=== PATIENT | male | born 1990 | race Caucasian/White ===

== ENCOUNTER 2021-09-23 09:17 | Outpatient (RCR) | payer OTHER ==
[~2021-09-23 09:17] MED LIST: ISOT40CA8 PO
== END 2021-10-20 | disposition home or self-care (01) ==
LOC: CARD 09:17
PROVIDERS: ATTEND Nurse Practitioner Family
DX: I95.1 Orthostatic hypotension (principal); R00.2 Palpitations; I49.8 Other specified cardiac arrhythmias
CPT/HCPCS: 93270

== ENCOUNTER 2021-11-09 09:38 | Emergency (ER) | payer OTHER ==
[~2021-11-09] VITALS: Ht 175 cm; Wt 76.0 kg
--- NOTE | 2021-11-09 10:37 | ED Chest Pain ---
General Chief Complaint: Chest Pain Stated Complaint: CHEST TIGHTNESS Nursing Triage Note: PT REPORTS TO ED POV FOR LEFT PECTORAL CHEST PAIN. PER PT PAIN STARTED YESTERDAY AND IS INTERMITTENT. DENIES CARDIAC HX BUT DOES HAVE AN ECHO SCHEDULED 11/12/21. PT RAN OUT OF HIS METOPROLOL 11/06/21, UNSURE IF THIS IS PART OF THE ISSUE. PT AMB. TO ROOM 03 WITHOUT DIFFICULTY. Source: patient Exam Limitations: no limitations History of Present Illness Date Seen by Provider: Nov 09, 2021 Time Seen by Provider: 10:30 Initial Comments Wilfrid is a 31-year-old otherwise healthy individual with a chief complaint of left sided chest discomfort/pressure "tightness". He states that he had COVID a year and a half ago and feels like he has multiple symptoms related to that but it persisted over the last 18 months. He states in the last 24 to 48 hours he has had this discomfort develop it happens both at rest, while driving and moving around. No associated symptoms of sweating, shortness of breath or nausea. His primary care physician is working up his "long-haul" COVID symptoms. He has a scheduled appointment for chest x-ray and echocardiogram on Tuesday of this week. Patient denies any recent illnesses such as fevers, chills, cough or congestion. He is COVID vaccinated after his COVID diagnosis. He has not had a booster. No personal or family history of blood clot or cardiovascular disease. Hypothyroidism runs in the family and his thyroid levels have been checked within the last month or 2. He does endorse a significant amount of anxiety related to his symptoms Currently no pain. All other review of systems reviewed and negative except as stated. Timing/Duration: 1-2 days Severity/Quality: pressure, tightness Location: central (left sided) Radiation: no radiation Activities at Onset: none Prior CP/Workup: no prior chest pain, no prior cardiac workup ASA po SHOWER ROOM ATTENDANT: No NTG SL SHOWER ROOM ATTENDANT: No Associated Symptoms: fatigue Allergies and Home Medications Allergies Coded Allergies: No Known Drug Allergies (Unverified , 11/09/11) Patient Home Medication List Home Medication List Reviewed: Yes Isotretinoin (Accutane) 40 Mg Capsule, 40 MG PO, (Reported) Entered as Reported by: SHIKHA BORREGO on 11/09/11 3163 Review of Systems Review of Systems Constitutional: see HPI EENTM: No Symptoms Reported Respiratory: No Symptoms Reported Cardiovascular: Chest Pain Gastrointestinal: No Symptoms Reported Genitourinary: No Symptoms Reported Musculoskeletal: no symptoms reported Skin: no symptoms reported Psychiatric/Neurological: Anxiety All Other Systems Reviewed Negative Unless Noted: Yes Past Moquotf-Cjmfti-Xsvxnm Hx Patient Social History Tobacco Use?: No Use of E-Cig and/or Vaping dev: No Substance use?: No Alcohol Use?: Yes Alcohol type: Beer Alcohol Frequency: Once in a while Pt feels they are or have been: No Immunizations Up To Date First/Initial COVID19 Vaccinat: 08/2020 Second COVID19 Vaccination Georgi: 08/2020 COVID19 Vaccine Milk Route Deliverer: [place] Past Medical History Surgery/Hospitalization HX: PMH;DENIES. SURGERY;DENIES. Physical Exam Vital Signs Vital Signs - First Documented 11/09/21 09:42 Temp 36.1 Pulse 60 Resp 16 B/P (MAP) 120/68 (85) Pulse Ox 99 O2 Delivery Room Air Capillary Refill : Less Than 3 Seconds Height, Weight, BMI Height: '" Weight: lbs. oz. kg; 24.00 BMI Method:Stated General Appearance: No Apparent Distress, WD/WN HEENT: PERRL/EOMI Neck: Normal Inspection Respiratory: Lungs Clear, Normal Breath Sounds, No Accessory Muscle Use, No Respiratory Distress Cardiovascular: Regular Rate, Rhythm, No Murmur, Normal Peripheral Pulses Gastrointestinal: Normal Bowel Sounds, Non Tender, Soft Extremity: Normal Capillary Refill, Normal Inspection, Normal Range of Motion, Non Tender, No Calf Tenderness Neurologic/Psychiatric: Alert, Oriented x3, No Motor/Sensory Deficits, Other (Anxiety) Skin: Normal Color, Warm/Dry Progress/Results/Core Measures Results/Orders Lab Results Laboratory Tests Test 11/09/21 09:50 Range/Units White Blood Count 5.2 4.3-11.0 10^3/uL Red Blood Count 5.24 4.30-5.52 10^6/uL Hemoglobin 16.0 13.3-17.7 g/dL Hematocrit 46 40-54 % Mean Corpuscular Volume 87 80-99 fL Mean Corpuscular Hemoglobin 31 25-34 pg Mean Corpuscular Hemoglobin Concent 35 32-36 g/dL Red Cell Distribution Width 11.9 10.0-14.5 % Platelet Count 222 130-400 10^3/uL Mean Platelet Volume 9.9 9.0-12.2 fL Immature Granulocyte % (Auto) 0 % Neutrophils (%) (Auto) 55 42-75 % Lymphocytes (%) (Auto) 32 12-44 % Monocytes (%) (Auto) 9 0-12 % Eosinophils (%) (Auto) 4 0-10 % Basophils (%) (Auto) 0 0-10 % Neutrophils # (Auto) 2.9 1.8-7.8 10^3/uL Lymphocytes # (Auto) 1.7 1.0-4.0 10^3/uL Monocytes # (Auto) 0.4 0.0-1.0 10^3/uL Eosinophils # (Auto) 0.2 0.0-0.3 10^3/uL Basophils # (Auto) 0.0 0.0-0.1 10^3/uL Immature Granulocyte # (Auto) 0.0 0.0-0.1 10^3/uL Sodium Level 141 135-145 MMOL/L Potassium Level 3.6 3.6-5.0 MMOL/L Chloride Level 103 98-107 MMOL/L Carbon Dioxide Level 26 21-32 MMOL/L Anion Gap 12 5-14 MMOL/L Blood Urea Nitrogen 19 H 7-18 MG/DL Creatinine 1.07 0.60-1.30 MG/DL Estimat Glomerular Filtration Rate 96 BUN/Creatinine Ratio 18 Glucose Level 97 70-105 MG/DL Calcium Level 10.4 H 8.5-10.1 MG/DL Total Creatine Kinase 89 30-200 U/L Troponin I < 0.028 <0.028 NG/ML My Orders Orders - BLANCA DUMONT MD Ekg Tracing (11/09/21 09:42) Chest 1 View, Ap/Pa Only (11/09/21 10:36) Basic Metabolic Panel (11/09/21 10:36) Troponin I [place] (11/09/21 10:36) Creatine Kinase (11/09/21 10:36) Cbc With Automated Diff (11/09/21 10:36) Vital Signs/I&O 11/09/21 09:42 Temp 36.1 Pulse 60 Resp 16 B/P (MAP) 120/68 (85) Pulse Ox 99 O2 Delivery Room Air Blood Pressure Mean: 85 Progress Progress Note : Time: 11:53 Progress Note Patient seen and evaluated, 31-year-old with precordial chest pain, pain in the left pectoralis area. No findings concerning for NSTEMI. His EKG is normal his vital signs are normal his oxygenation is normal. His chest x-ray, EKG and labs are all within normal range. He would fall at low risk on the heart score. He has scheduled follow-up with an echo on Tuesday and with his primary care phys ician. Supportive care is offered, ibuprofen, fluids He works out consistently with heavy weight lifting but has held off over the course of the last month or so. He has taken himself off of "preworkout". No recent traumas stresses or strains. He is very anxious about his health. He is requesting anxiety medications for this. No clinical or objective findings to warrant further studies from the emergency department. Patient stable for discharge Initial ECG Impression Date: Nov 09, 2021 Initial ECG Impression Time: 09:46 Initial ECG Rate: 58 Initial ECG Rhythm: Normal Sinus Initial ECG Intervals: Normal Initial ECG Impression: Normal Diagnostic Imaging Diagonstic Imaging: Xray Plain Films/CT/US/NM/MRI: chest Comments [facility], [place], [place] NAME: WILFRID HANKINS [facility] REC#: [id number] PT STATUS: REG ER : 1990 PHYSICIAN: BLANCA DUMONT MD ADMIT DATE: 11/09/21/ER Signed Date of Exam:11/09/21 CHEST 1 VIEW, AP/PA ONLY INDICATION: Chest pain. COMPARISON: 11/09/2011. FINDINGS: The lungs appear clear without focal airspace opacities or consolidation. There are no findings of an effusion. There is no evidence of a pneumothorax. Heart size and mediastinal contours appear appropriate. Pulmonary vascularity appears within normal limits. There is no acute or suspicious osseous abnormality demonstrated. IMPRESSION: No radiographic evidence of an acute cardiopulmonary process. Dictated by: Dictated on workstation # [id number] Dict: 11/09/21 1053 Trans: 11/09/21 1054 [facility] [id number] Interpreted by: PAULINE HAIR MD Electronically signed by: PAULINE HAIR MD 11/09/21 1054 Departure Impression Primary Impression: Chest pain Qualified Codes: R07.1 - Chest pain on breathing Additional Impression: Anxiety about health Disposition: HOME, SELF-CARE Condition: Stable Departure-Patient Inst. Decision time for Depature: 11:59 Referrals: KRISSY DIANA DO (PCP/Family) Primary Care Physician Patient Instructions: Chest Pain, Adult ED, Anxiety, Adult (DC) Add. Discharge Instructions: Drink plenty of fluids to stay well-hydrated. You can take cnhg-fvm-bkkzbec Aleve, 2 pills twice daily with food as needed for chest discomfort. Please keep your follow-up appointment for your echocardiogram on Tuesday. Return to the emergency department for worsening pain especially with shortness of breath, productive cough, fever or other emergent concerning symptoms. Please follow-up with Dr. Diana. I have given you a prescription for hydroxyzine/Vistaril, you can take 1 pill every 6 hours as needed for anxiety. Do not drive and take this medication. Scripts Hydroxyzine HCl (Hydroxyzine HCl) 25 Mg Tablet 25 MG PO Q6H PRN for anxiety, #20 TAB Prov: BLANCA DUMONT MD 11/09/21 Copy Copies To 1: KRISSY DIANA KATHRYN M MD Nov 09, 2021 10:37
[2021-11-09 10:42] LABS: BASOPHILS % (AUTO) 0 % (0-10); EOSINOPHILS # (AUTO) 0.2 10^3/uL (0.0-0.3); EOSINOPHILS % (AUTO) 4 % (0-10); HEMATOCRIT 46 % (40-54); LYMPHOCYTES # (AUTO) 1.7 10^3/uL (1.0-4.0); LYMPHOCYTES % (AUTO) 32 % (12-44); MEAN CORPUSCULAR HEMOGLOBIN 31 pg (25-34); MEAN CORPUSCULAR HGB CONC 35 g/dL (32-36); MEAN CORPUSCULAR VOLUME 87 fL (80-99); MEAN PLATELET VOLUME 9.9 fL (9.0-12.2); MONOCYTES # (AUTO) 0.4 10^3/uL (0.0-1.0); MONOCYTES % (AUTO) 9 % (0-12); NEUTROPHILS # (AUTO) 2.9 10^3/uL (1.8-7.8); NEUTROPHILS % (AUTO) 55 % (42-75); PLATELET COUNT 222 10^3/uL (130-400); WHITE BLOOD COUNT 5.2 10^3/uL (4.3-11.0)
[2021-11-09 10:44] LABS: CHLORIDE 103 MMOL/L (98-107); POTASSIUM 3.6 MMOL/L (3.6-5.0); SODIUM 141 MMOL/L (135-145)
[2021-11-09 10:45] LABS: CALCIUM 10.4 MG/DL (8.5-10.1)
[2021-11-09 10:46] LABS: GLUCOSE 97 MG/DL (70-105)
[2021-11-09 10:47] LABS: CARBON DIOXIDE 26 MMOL/L (21-32)
[2021-11-09 10:49] LABS: CREATININE SERUM 1.07 MG/DL (0.60-1.30); GFR ESTIMATED 96
[2021-11-09 10:50] LABS: BUN/CREATININE RATIO 18
[2021-11-09 10:52] LABS: CREATINE KINASE 89 U/L (30-200)
--- NOTE | 2021-11-09 10:56 | Diagnostic Imaging Report ---
INDICATION: Chest pain. COMPARISON: 11/09/2011. FINDINGS: The lungs appear clear without focal airspace opacities or consolidation. There are no findings of an effusion. There is no evidence of a pneumothorax. Heart size and mediastinal contours appear appropriate. Pulmonary vascularity appears within normal limits. There is no acute or suspicious osseous abnormality demonstrated. IMPRESSION: No radiographic evidence of an acute cardiopulmonary process. Dictated by: Dictated on workstation # [id number]
[2021-11-09] MEDS ORDERED: HYDR-700 PO (12:00)
[2021-11-09 12:21] VITALS: BP 107/73
== END 2021-11-09 12:21 | disposition home or self-care (01) ==
LOC: EDUNIT# 09:38 → ER 09:41
DX: F41.9 Anxiety disorder, unspecified (principal); R07.89 Other chest pain; Z86.16 Personal history of COVID-19; Z28.311 Partially vaccinated for COVID-19
CPT/HCPCS: 36415; 71045; 80048; 82550; 84484; 85025; 93005

== ENCOUNTER → 2021-11-12 | Outpatient (CLI) | payer SELFPAY ==
[~2021-11-12] MED LIST changes: +HYDR-700 PO
== END ==
LOC: CARD 09:00
PROVIDERS: ATTEND Nurse Practitioner Family
DX: R00.2 Palpitations (principal)
CPT/HCPCS: 93306

== ENCOUNTER → 2022-01-08 | Outpatient (CLI) | payer OTHER ==
[~2022-01-08] MED LIST changes: +CATHETER FLUSH 10 ML SYR IVP PRN
[2022-01-08 08:08] VITALS: BP 123/70
--- NOTE | 2022-01-08 09:48 | NUCLEAR STRESS TEST ---
TREADMILL NUCLEAR STRESS TEST Date of procedure: 01/08/2022. Primary care provider: Kamran Anthony DO. Admitting physician: Kamran Anthony DO. INDICATION: Dyspnea, chest pain and palpitations. STRESS TEST PROCEDURE: This is the nuclear portion only for a treadmill nuclear stress test. Please see separate report for stress test findings. NUCLEAR PROCEDURE: The patient was administered 10.3 mCi of intravenous technetium 99m Tetrofosmin at rest for the rest images. The patient was subsequently administered 32.3 mCi of intravenous technetium 99 M Tetrofosmin at peak stress for the stress images. Following an appropriate wait after each injection, imaging was obtained. The images were subsequently processed and reformatted in the usual views. Gated imaging was obtained. The image quality was adequate with a mild degree of gastrointestinal attenuation artifact. CT attenuation correction was used as a adjunct to standard imaging. Both the corrected and uncorrected images were reviewed for interpretation. NUCLEAR RESULTS: There was normal myocardial perfusion in all segments without evidence of infarction or ischemia. There was normal left ventricular chamber size with an end-diastolic volume of 78 mL and an end-systolic volume of 31 mL. There was no evidence of transient ischemic dilatation. The TID ratio was 1.02. There was normal wall motion in all segments with a calculated ejection fraction of 60%. IMPRESSION: 1. This is the nuclear interpretation only for a treadmill nuclear stress test. Please see separate report for stress test findings. 2. There was normal myocardial perfusion in all segments without evidence of infarction or ischemia. 3. There was normal wall motion in all segments with a calculated ejection fr action of 60%. Certain portions of this document may have been dictated utilizing voice recognition technology. Inherent to this technology, typographical and grammatical errors may exist. As much as I am diligent to identify and correct these mistakes, some errors may remain in the document. SHARLA KIM JR, MD Jan 08, 2022 09:48
== END ==
LOC: CARD 07:00
PROVIDERS: ATTEND Nurse Practitioner Family
DX: R07.89 Other chest pain (principal); R06.00 Dyspnea, unspecified; R00.2 Palpitations
CPT/HCPCS: 78452; 93017; A9502

== ENCOUNTER 2022-02-10 05:38 | Outpatient (CLI) | payer OTHER ==
[~2022-02-10] VITALS: Ht 175.3 cm; Wt 73.6 kg
[~2022-02-10 05:38] MED LIST changes: -CATHETER FLUSH 10 ML SYR IVP PRN
== END 2022-02-11 12:27 ==
LOC: PREOP 05:38
PROVIDERS: ATTEND Surgery
DX: Z01.818 Encounter for other preprocedural examination (principal)

== ENCOUNTER 2022-03-08 08:44 | Day surgery (SDC) | payer OTHER ==
[~2022-03-08] VITALS: Ht 175.3 cm; Wt 73.6 kg
[2022-03-08] MEDS ORDERED: LACTATED RINGERS 1,000 ML IV STA (08:50)
[2022-03-08 09:02] VITALS: BP 110/64
[2022-03-08] MEDS ORDERED: PROPOFOL INJECTION 50 ML IV ONE (09:07)
[2022-03-08 09:55] VITALS: BP 116/68
[2022-03-08 10:30] VITALS: BP_SYST 106; BP_SYST 110; BP_DIAS 64; BP_DIAS 66
--- NOTE | 2022-03-08 10:31 | Progress Note-Post Operative ---
Post-Operative Progess Note Surgeon (s)/C D Area Supervisor (s) Surgeon MUSHTAQ VELASQUEZ DO C D Area Supervisor: CHAPO Wright Pre-Operative Diagnosis Change in bowel habits, bloating constipation Post-Operative Diagnosis int hemorrhoids Procedure & Operative Findings Date of Procedure 03/08/22 Procedure Performed/Findings Colonoscopy PROCEDURE NOTE: After informed consent was obtained, the patient was brought to the endoscopy suite, placed in bed in left lateral decubitus position. He was administered IV sedation by the SINGING WAITER OR WAITRESS who then monitored his vitals the entire time, heart rate, blood pressure and pulse ox and the scope was inserted, pushed all the way to about 150 cm and pushed into the cecum, took a picture of appendiceal orifice and then slowly withdrew the scope insufflating the circumferential pat looking the cecum, up the ascending colon to the hepatic flexure, then down the transverse colon, splenic flexure, into the descending colon down in the sigmoid and then into the rectal vault and retroflexed the scope. Took picture of the internal hemorrhoids. The patient tolerated the procedure. He was recovered in endoscopy suite. Recommended for repeat colonoscopy at 47 years old. Anesthesia Type IV sedation by SINGING WAITER OR WAITRESS Estimated Blood Loss Estimated blood loss (mL): none Specimens/Packing Specimens Removed none MUSHTAQ VELASQUEZ DO Mar 08, 2022 10:31
--- NOTE | 2022-03-08 10:31 | Endoscopy Discharge Instruct ---
Endo Procedure/Findings Findings 1.: Internal Hemorrhoids Discharge Instructions - Activity: You might feel a little sleepy until tomorrow. This is due to the me dicine you received to relax you. Until tomorrow, you should: NOT drive a car, operate machinery or power tools. NOT drink any alcoholic beverages. NOT make any important decisions or sign importortant papers. Do not return to work until tomorrow, unless otherwise instructed. Resume previous activities tomorrow. Diet: Start by taking liquids. If you tolerate liquids, advance to solid food. 1.: Other Recommendation (colonoscopy at 47yo) Notify Physician - If you experience excessive bleeding, unusual abdominal pain, fever, or chest pain, contact your doctor immediately. MUSHTAQ VELASQUEZ DO Mar 08, 2022 10:31
[2022-03-08 10:55] VITALS: BP 106/64
--- NOTE | 2022-03-08 11:18 | Anesthesia-General Post-Op ---
MAC Patient Condition Mental Status/LOC: Same as Preop Cardiovascular: Satisfactory Nausea/Vomiting: Absent Respiratory: Satisfactory Pain: Controlled Complications: Absent Post Op Complications Complications None Follow Up Care/Instructions Patient Instructions None needed. Anesthesiology Discharge Order Discharge Order Patient is doing well, no complaints, stable vital signs, no apparent adverse anesthesia problems. No complications reported per nursing. KRISTAN KEITH CRNA Mar 08, 2022 11:18
== END 2022-03-08 11:00 | disposition home or self-care (01) ==
LOC: ENDO 08:44
PROVIDERS: ATTEND Surgery
DX: K64.8 Other hemorrhoids (principal); K59.00 Constipation, unspecified